=== PATIENT | female | born 1965 | race Caucasian/White ===

== ENCOUNTER 2021-02-09 00:32 | Emergency (ER) | payer OTHER ==
[2021-02-09 01:29] LABS: BASOPHIL 1.1 % (0-2); EOSINOPHIL 7.1 % (0-5); HCT 34.9 % (37.0-47.0); HGB 11.9 g/dl (12.5-16.0); LYMPHOCYTE 34.6 % (15-48); MCH 31.2 pg (25.0-31.0); MCHC 34.1 g/dL (32.0-36.0); MCV 91.4 fL (78.0-100.0); MPV 10.5 fL (6.0-9.5); NRBC 0; PLT 409 K/uL (150-400); RBC 3.82 M/uL (4.20-5.40); RDW 12.8 % (11.5-14.0)
[2021-02-09 01:34] LABS: INR 1.03 (0.9-1.2); PROTHROMBIN TIME 12.8 SECONDS (11.4-13.6); PTT 29.7 SECONDS (22.2-34.7)
[2021-02-09 01:36] LABS: D-DIMER 1.16 ug/mLFEU (0.00-0.41)
[2021-02-09 01:44] LABS: BILIRUBIN NEGATIVE (NEGATIVE); BLOOD NEGATIVE Ery/uL (NEGATIVE); CLARITY CLEAR (CLEAR); COLOR YELLOW (YELLOW); GLUCOSE (U) NORMAL (NORMAL); LEUKOCYTES TRACE Leu/uL (NEGATIVE); NITRITE NEGATIVE (NEGATIVE); PROTEIN NEGATIVE (NEGATIVE); UROBILINOGEN 0.2 mg/dL (0.2-1.0); pH 5.5 (5.0-9.0)
[2021-02-09 01:47] LABS: IRON % SATURATION 10.8 %SAT (20-50)
[2021-02-09 01:50] LABS: BACTERIA TRACE; URINARY WBC RARE
[2021-02-09 01:58] LABS: ALBUMIN 3.6 g/dL (3.4-5.0); ALKALINE PHOSHATASE 104 U/L (46-116); ALT 42 U/L (14-59); AST 27 U/L (15-37); BILIRUBIN - TOTAL 0.3 mg/dL (0.2-1.0); BUN 10 mg/dL (7-18); BUN/CREAT RATIO (CALC) 11.5 RATIO; C-REACTIVE PROTEIN <0.20 mg/dL (<=0.90); CHLORIDE 102 mmol/L (98-107); CO2 (BICARBONATE) 27 mmol/L (21-32); CPK 41 U/L (26-192); CREATININE 0.87 mg/dL (0.51-0.95); GLOBULIN (CALCULATION) 3.6 g/dL; GLUCOSE 106 mg/dL (74-106); LDH 264 U/L (81-234); PHOSPHORUS 4.6 mg/dL (2.6-4.7); POTASSIUM 3.6 mmol/L (3.5-5.1); TOTAL PROTEIN 7.2 g/dL (6.4-8.2)
[2021-02-09] MEDS ORDERED: MEDROL 4MG DOSEP4 MG PO (02:49)
[2021-02-09] MEDS ORDERED: NORCO 5-325 TA1 EACH PO (02:49)
[2021-02-09] MEDS ORDERED: NEURONTIN300 MG PO (02:49)
== END 2021-02-09 03:15 | disposition home or self-care (01) ==
LOC: FER 00:32
PROVIDERS: Emergency Medicine
DX: L30.9 Dermatitis, unspecified (principal); D72.10 Eosinophilia, unspecified; E61.1 Iron deficiency; Z91.040 Latex allergy status
CPT/HCPCS: 36415; 80053; 81001; 82550; 82728; 83036; 83540; 83550; 83605; 83615; 83735; 83880; 84100; 84145; 84443; 85025; 85379; 85610; 85730; 86140; 93005; J1170; J1650; J2405; J2930; J7030